=== PATIENT | female | born 2000 | race Caucasian/White ===

== ENCOUNTER 2023-01-01 14:52 | Emergency (ER) | payer MEDICAID, SELFPAY ==
[2023-01-01 14:53] VITALS: BP 126/85; PULSE 110; RESP 16; TEMP 36.6; O2SAT 96; BMI 32.1
--- NOTE | 2023-01-01 15:18 | EX.ED.DYSGE1 ---
HPI <DEB Conley - Last Filed: 01/01/23 15:41> History of Present Illness Chief Complaint: Burn Narrative Narrative: Patient used a facial chemical exfoliant product from [employer]t on her face yesterday and it started to burn. When she removed it she noticed santos along her lower face. She has used it in the past with no issue. This morning she felt nauseous and she was not sure if it was related to the chemical burn. She otherwise feels well denies chest pain, abdominal pain, vomiting, and is having normal bladder bowel movements PFSH <DEB Conley - Last Filed: 01/01/23 15:41> [facility] Medical History no medical history Home Medications norethindrone (contraceptive) 0.35 mg tablet mg 01/01/23 [History Last Taken Unknown] oxycodone 5 mg tablet mg 01/01/23 [History Last Taken Unknown] Allergy/AdvReac Type Severity Reaction Status Date / Time No Known Allergies Allergy Verified 01/01/23 14:54 Family History no significant family his Surgical History no surgical history Social History Smoking Status: Current every day smoker tobacco type: cigarettes ROS <DEB Conley - Last Filed: 01/01/23 15:41> ROS ED ROS Narrative Constitutional: Negative for fever, chills, malaise. CVS: Negative for chest pain. Respiratory: Negative for shortness of breatha. GI: Positive for nausea. Negative for abdominal pain,vomiting, diarrhea, constipation, melena, hematochezia. : Negative for dysuria. Neuro: Negative for headache. Skin: Positive for burn. EXAM <DEB Conley - Last Filed: 01/01/23 15:41> Physical Exam Narrative Exam Narrative: CONST: Patient sitting in no acute distress. EYES: Normal inspection. NECK: Normal inspection. RESP: No respiratory distress, CTAB. CVS: Regular rate and rhythm, no murmur, no gallop. ABD: Soft and nontender, no guarding or rebound, nondistended. SKIN: Small area of dried scab-like burn on either side of her jawline. No blisters, no drainage, no erythema or warmth. EXTREMITIES: Normal appearance, no pedal edema. NEURO: Oriented x4. PSYCH: Normal affect. Const Vital Signs: 01/01/23 14:53 01/01/23 15:17 Temperature 98 F Temperature Source Temporal Pulse Rate 110 H Respiratory Rate 16 Respiratory Effort Normal Respiratory Depth Normal Respiratory Pattern Normal Blood Pressure 126/85 H Blood Pressure Mean 98 Pulse Ox 96 Oxygen Delivery Method Room Air <Dr. Jp Biggs MD - Last Filed: 01/01/23 17:13> Physical Exam Const Vital Signs: 01/01/23 14:53 01/01/23 15:17 Temperature 98 F Temperature Source Temporal Pulse Rate 110 H Respiratory Rate 16 Respiratory Effort Normal Respiratory Depth Normal Respiratory Pattern Normal Blood Pressure 126/85 H Blood Pressure Mean 98 Pulse Ox 96 Oxygen Delivery Method Room Air MDM <DEB Conley - Last Filed: 01/01/23 15:41> [facility] Narrative Medical decision making narrative: Patient has very small chemical santos along her jawline from a skin mask exfoliate she used. There are no signs of secondary skin infection. No blistering. We discussed wound care. She also reported nausea and was given a single Zofran. She has no abdominal pain or other symptoms and does not require emergent work-up. She requested a work note. She was discharged in stable condition. <Dr. Jp Biggs MD - Last Filed: 01/01/23 17:13> [facility] Treatment and Re-Evaluation :: I have personally performed a face to face assessment of the patient and have reviewed the TISH Note. I performed a substantive portion of the visit including all aspects of the following. My delaney findings include: History: Patient presents with irritation to her face. Yesterday she used a new product on her face. This was an exfoliate her facial peel. She states it is very irritated after she pulled it off. No fevers or chills. No trouble breathing. No diffuse rash. It is only in the area where this facial product was placed. She then also request a note for work. Exam: Patient does have some mild erythema to the lower face. There is no blistering. No sign of infection. No trouble breathing. Oropharynx is normal. Medical Decision Making: Patient should keep the area clean. I explained that now any material she places on the face may be irritating when it normally would not. She should avoid any sun exposure for the next few days. She can try a small amount of hydrocortisone on the area or she can just let it rest and it should resolve. Discharge Plan Triage Chief Complaint: Burn ED Midlevel Provider: Yazmin Britton ED Provider: Jp Biggs Dx/Rx/DC Orders Clinical Impression: Chemical burn of skin Instructions: ED Chemical Burn, Skin Prescriptions: No Action norethindrone (contraceptive) 0.35 mg tablet oxycodone 5 mg tablet Patient Comments: TAKE 1 TABLET BY MOUTH EVERY 4 HOURS NEEDED FOR PAIN FOR UP TO 7 DAYS. Stand Alone Forms: ED Work / School Excuse Primary Care Provider: Care Physician,No Primary Referrals: Care Physician,No Primary [Primary Care Provider] - Activity Restrictions/Additional Instructions: Do not scratch or pick at the wound. It should heal over the next week. Disposition Disposition: Home, Self Care Discharge Date/Time: 01/01/23 15:45
[2023-01-01] MEDS: Ondansetron ODT 4 MG Tablet PO (15:21)
== END 2023-01-01 15:45 | disposition home or self-care (01) ==
PROVIDERS: Emergency Provider Emergency Medicine; Visit Provider Emergency Medicine
DX: T65.891A Toxic effect of other specified substances, accidental (unintentional), initial encounter (principal); T20.40XA Corrosion of unspecified degree of head, face, and neck, unspecified site, initial encounter; R11.0 Nausea; F17.210 Nicotine dependence, cigarettes, uncomplicated
CPT/HCPCS: 99283